=== PATIENT | male | born 1985 | race Two or more races ===

== ENCOUNTER → 2018-04-01 | Outpatient (CLI) | payer BC | END | disposition home or self-care (01) | LOC: HKI 11:31 | DX: S93.401D Sprain of unspecified ligament of right ankle, subsequent encounter (principal); X58.XXXD Exposure to other specified factors, subsequent encounter; M70.61 Trochanteric bursitis, right hip | CPT/HCPCS: G0463 ==

== ENCOUNTER → 2018-05-03 | Outpatient (CLI) | payer BC | END | disposition home or self-care (01) | LOC: HKI 15:59 | DX: S93.401D Sprain of unspecified ligament of right ankle, subsequent encounter (principal); X58.XXXD Exposure to other specified factors, subsequent encounter | CPT/HCPCS: G0463 ==

== ENCOUNTER → 2018-06-18 | Outpatient (CLI) | payer BC | END | disposition home or self-care (01) | LOC: HKI 14:53 | DX: M75.51 Bursitis of right shoulder (principal) | CPT/HCPCS: G0463 ==